=== PATIENT | female | born 1955 | race Hispanic/Latino ===

== ENCOUNTER 2021-02-18 10:35 | Emergency (ER) | payer BC, OTHER ==
[~2021-02-18] VITALS: Ht 157.5 cm; Wt 81.6 kg
[~2021-02-18 10:35] MED LIST: ATORVASTATIN CA20 MG PO; CITALOPRAM HBR20 MG PO; ENBREL50 MG/1 ML SQ; FISH OIL PO; FOLIC ACID1 MG PO; GLUCOSAMINE &1 EAC1 PO; OMEPRAZOLE20 MG PO; PREDNISONE5 MG PO; TORSEMIDE20 MG PO
== END 2021-02-18 11:29 | disposition home or self-care (01) ==
LOC: ER 11:01
DX: R53.81 Other malaise (principal); R50.9 Fever, unspecified; R05 Cough; I10 Essential (primary) hypertension; M06.9 Rheumatoid arthritis, unspecified; E78.5 Hyperlipidemia, unspecified
CPT/HCPCS: 93005; 99282